=== PATIENT | male | born 2000 | race Caucasian/White ===

== ENCOUNTER 2023-04-13 16:29 | Outpatient (OUT) | payer OTHER, SELFPAY ==
[2023-04-17 03:07] LABS: Neisseria gonorrhoeae, NAA Negative (Negative)
== END 2023-04-13 16:30 | disposition home or self-care (01) ==
PROVIDERS: PCP Internal Medicine; Visit Provider Internal Medicine
DX: Z86.19 Personal history of other infectious and parasitic diseases (principal)
CPT/HCPCS: 87491; 87591

== ENCOUNTER 2023-07-20 17:46 | Emergency (ER) | payer OTHER, SELFPAY ==
[2023-07-20 17:49] VITALS: BP 126/71; PULSE 81; TEMP 37.1; O2SAT 97; BMI 27.1
--- OUTSIDE RECORDS SUMMARY | 2023-07-20 17:54 | XMS_ITS ---
Patient Summarization (C-CDA 2.1 CCD) Created on: July 20, 2023 DELORIS SAHNI : 2000 Sex: Male Author Organization Sample organization Care Team Providers Care Motion Picture Narrator Name Role Phone SHAIKH ESTEVEZ Attending Unavailable SHAIKH ESTEVEZ Consulting Unavailable SHAIKH ESTEVEZ Primary Care Unavailable SHAIKH ESTEVEZ Admitting Unavailable DayoTamar Unavailable Jade Cooper Unavailable Rose Marie, Reta Unavailable Rose Marie, FRAN Valdivia Attending Provider [phone] Reta Trotter Attending Unavailable Reta Trotter Admitting Unavailable SHAIKH ESTEVEZ Attending Unavailable Encounters Encounter Date Encounter Type Care Provider Facility Start: 04-09-2023 End: 04-09-2023 ambulatory SHAIKH HERB Not Available Start: 01-25-2023 End: 01-25-2023 ambulatory Reta Rose Marie Other [facility] Other Start: 01-25-2023 Telephone encounter Retaklever Trotter [facility] [address] Start: 01-21-2023 End: 01-21-2023 Departed Referred TETRYL NITRATOR OPERATORIrene Trotter Work Phone: [facility] [place] Work Phone: Start: 01-21-2023 End: 01-21-2023 ambulatory Reta M Rose Marie Homer zanda Other Start: 01-21-2023 Office outpatient visit 15 minutes Reta Rose Marie [facility] Start: 02-21-2021 End: 02-21-2021 ambulatory Jade Cooper Other [facility] Other Start: 02-21-2021 Office outpatient visit 5 minutes Jade Allison [facility] Start: 01-05-2021 End: 01-06-2021 ambulatory SHAIKH HERB Facility: Start: 11-18-2020 Office outpatient visit 5 minutes Tamarmoustapha Oshea [facility] Medications Current Medications Medication Drug Class(es) Dates Sig (Normalized) Sig (Original) doxycycline hyclate 100 mg oral capsule (1 source) Tetracycline-clas s Drug Start: 01-25-2023 take 1 capsule by mouth every twelve hours Doxycycline Hyclate 100 MG 1 capsule Orally Twice a day for 7 days Jan, Active Payers Date Payer Category Payer Self-pay 2023 Unknown [id number] 2000 Unknown [id number] 2000 Unknown [id number] 1959 Unknown [id number] Unknown [id number] Plan of Treatment Date Care Activity Detail Author Start: 01-21-2023 [facility] Chlamydia trachomati s DNA [Presence] in Unspecified specimen by HOLDEN with probe detection [facility] Neisseria gonorrhoea e DNA [Presence] in Unspecified specimen by HOLDEN with probe detection [facility] Trichomonas vaginali s DNA [Presence] in Unspecified specimen by HOLDEN with probe detection [facility] Problems Active Problems Problem Classification Problem Date Documented Da te Episodic/Chronic Epilepsy; convulsions (4 sources) Unspecified convulsions; Translations: [UNSPECIFIED CONVULSIONS] Onset: 01-05-2021 Episodic Residual codes; unclassified (2 sources) High risk heterosexual behavior; Translations: [High risk heterosexual behavior] Onset: 01-21-2023 Episodic Past or Other Problems Problem Classification Problem Date Documented Da te Episodic/Chronic Immunizations and screening for infectious disease (2 sources) Encounter for screening for other viral diseases; Translations: [Encounter for screening for other viral diseases Z11.59] Onset: 11-18-2020 Resolved: 02-21-2021 Episodic Results Test Name Value Interpretation Reference Range Facility Chlamydia/GC/Trich NAAon Chlamydia Trachomotis, HOLDEN Positive Critically abnormal Negative [facility] Comment on above: Order Comment: SOURC E OF SPECIMEN: URINE Performed By: #### G CCHLAMTRI #### [facility] , Neisseria Gonorrhoeae, HOLDEN Negative Normal Negative [facility] Comment on above: Order Comment: SOURC E OF SPECIMEN: URINE Performed By: #### G CCHLAMTRI #### [facility] , Trichomonas HOLDEN Negative Normal Negative [facility] Comment on above: Order Comment: SOURC E OF SPECIMEN: URINE Result Comment: Perf ormed at: =G - [facility] [address] [id number] Supervisor Counseling And Guidance: Jillian Hernández MD, Phone: [phone] PERFORMED BY: [facility] [address] [id number] PATHOLOGIST JUKE BOX SERVICER GERTRUDE BRAR M.D. Performed By: #### G CCHLAMTRI #### [facility] , CBC AUTO DIFFon 01-05-2021 BASO # 0.1 103/ul Normal 0.0-0.1 [facility] Comment on above: Performed By: #### C BC #### [facility] [address] [address] [address] Anita Costa Basophils/100 WBC (Bld) 1.3 % Normal 0.2-2.0 [facility] Comment on above: Performed By: #### C BC #### [facility] [address] [address] [address] Anita Costa EO # 0.2 103/ul Normal 0.0-0.7 [facility] Comment on above: Performed By: #### C BC #### [facility] [address] [address] [address] Anita Costa Eosinophils/100 WBC (Bld) 2.7 % Normal 0.9-7.0 [facility] Comment on above: Performed By: #### C BC #### [facility] [address] [place] [address] Dr. Anita Costa Erythrocyte distribution width (RBC) [Ratio] 12.2 % Normal 11.0-15.0 [facility] Comment on above: Performed By: #### C BC #### [facility] [address] [place] [address] Dr. Anita Costa Hematocrit (Bld) [Volume fraction] 46.2 % Normal 42.0-54.0 [facility] Comment on above: Performed By: #### C BC #### [facility] [address] [place] [address] Dr. Anita Costa Hemoglobin (Bld) [Mass/Vol] 15.3 g/dL Normal 14.0-18.0 [facility] Comment on above: Performed By: #### C BC #### [facility] [address] [place] [address] Dr. Anita Costa IG # 0.01 10e3/ul Normal 0.00-0.03 [facility] Comment on above: Performed By: #### C BC #### [facility] [address] [place] [address] Dr. Anita Costa IG % 0.2 % Normal 0.0-0.5 [facility] Comment on above: Performed By: #### C BC #### [facility] [address] [place] [address] Dr. Anita Costa LYMPH # 1.9 103/ul Normal 1.2-3.8 [facility] Comment on above: Performed By: #### C BC #### [facility] [address] [place] [address] Dr. Anita Costa Lymphocytes/100 WBC (Bld) 34.6 % Normal 20.5-60.0 [facility] Comment on above: Performed By: #### C BC #### [facility] [address] [place] [address] Dr. Anita Costa MANUAL DIFF REQ NO Normal [facility] Comment on above: Performed By: #### C BC #### [facility] [address] [place] [address] Dr. Anita Costa MCH (RBC) [Entitic mass] 30.5 pg Normal 25.9-34.0 [facility] Comment on above: Performed By: #### C BC #### [facility] [address] [place] [address] Dr. Anita Costa MCHC (RBC) [Mass/Vol] 33.1 g/dL Normal 29.9-35.2 [facility] Comment on above: Performed By: #### C BC #### [facility] [address] [place] [address] Dr. Anita Costa MCV (RBC) [Entitic vol] 92.0 fL Normal 80.0-94.0 [facility] Comment on above: Performed By: #### C BC #### [facility] [address] [place] [address] Dr. Anita Costa MONO # 0.4 103/ul Normal 0.3-0.8 [facility] Comment on above: Performed By: #### C BC #### [facility] [address] [place] [address] Dr. Anita Costa Monocytes/100 WBC (Bld) 7.9 % Normal 1.7-12.0 [facility] Comment on above: Performed By: #### C BC #### [facility] [address] [place] [address] Dr. Anita Costa NEUT # 3.0 103/ul Normal 1.4-6.5 [facility] Comment on above: Performed By: #### C BC #### [facility] [address] [place] [address] Dr. Anita Costa Neutrophils/100 WBC (Bld) 53.3 % Normal 43.0-75.0 [facility] Comment on above: Performed By: #### C BC #### [facility] [address] [place] [address] Dr. Anita Costa Platelet mean volume (Bld) [Entitic vol] 10.0 fL Normal 9.5-13.5 [facility] Comment on above: Performed By: #### C BC #### [facility] [address] [place] [address] Dr. Anita Costa PLT 261 103/ul Normal 150-450 [facility] Comment on above: Performed By: #### C BC #### [facility] [address] [place] [address] Dr. Anita Costa RBC 5.02 106/ul Normal 4.70-6.10 [facility] Comment on above: Performed By: #### C BC #### [facility] [address] [place] [address] Dr. Anita Costa WBC 5.6 103/ul Normal 4.0-11.0 [facility] Comment on above: Performed By: #### C BC #### [facility] [address] [place] [address] Dr. Anita Costa MAGNESIUMon 01-05-2021 Magnesium [Mass/Vol] 2.3 mg/dL Normal 1.6-2.3 [facility] Comment on above: Performed By: #### C MP, MG, TSH #### [facility] [address] [place] [address] Dr. Anita Costa PROF 14(COMP METB)on 021 Albumin [Mass/Vol] 4.0 g/dL Normal 3.5-5.0 [facility] Comment on above: Performed By: #### C MP, MG, TSH #### [facility] [address] [place] [address] Dr. Anita Costa Albumin/Globulin [Mass ratio] 1.2 {ratio} Normal [facility] Comment on above: Performed By: #### C MP, MG, TSH #### [facility] [address] [place] [address] Dr. Anita Costa ALP [Catalytic activity/Vol] 73 U/L Normal 38-126 [facility] Comment on above: Performed By: #### C MP, MG, TSH #### [facility] [address] [place] [address] Dr. Anita Costa ALT [Catalytic activity/Vol] 14 U/L Critically low 21-72 [facility] Comment on above: Performed By: #### C MP, MG, TSH #### [facility] [address] [address] [address] Anita Costa Anion gap [Moles/Vol] 9.2 mmol/L Normal [facility] Comment on above: Performed By: #### C MP, MG, TSH #### [facility] [address] [place] [address] Dr. Anita Costa AST [Catalytic activity/Vol] 13 U/L Critically low 17-59 [facility] Comment on above: Performed By: #### C MP, MG, TSH #### [facility] [address] [place] [address] Dr. nAita Costa Bilirubin [Mass/Vol] 0.6 mg/dL Normal 0.2-1.3 [facility] Comment on above: Performed By: #### C MP, MG, TSH #### [facility] [address] [place] [address] Dr. Anita Costa Calcium [Mass/Vol] 9.5 mg/dL Normal 8.4-10.2 [facility] Comment on above: Performed By: #### C MP, MG, TSH #### [facility] [address] [place] [address] Dr. Anita Costa Chloride [Moles/Vol] 103 mmol/L Normal 98-107 [facility] Comment on above: Performed By: #### C MP, MG, TSH #### [facility] [address] [place] [address] Dr. Anita Costa CO2 [Moles/Vol] 32.0 mmol/L Critically high 22.0-30.0 [facility] Comment on above: Performed By: #### C MP, MG, TSH #### [facility] [address] [place] [address] Dr. Anita Costa Creatinine [Mass/Vol] 0.73 mg/dL Normal 0.66-1.25 [facility] Comment on above: Performed By: #### C MP, MG, TSH #### [facility] [address] [place] [address] Dr. Anita Costa EGFR-AF ERITREAN >60 Normal >=60 [facility] Comment on above: Performed By: #### C MP, MG, TSH #### [facility] [address] [place] [address] Dr. Anita Costa EGFR-NON AF ERITREAN >60 Normal >=60 [facility] Comment on above: Performed By: #### C MP, MG, TSH #### [facility] [address] [place] [address] Dr. Anita Costa Globulin (S) [Mass/Vol] 3.3 g/dL Normal [facility] Comment on above: Performed By: #### C MP, MG, TSH #### [facility] [address] [place] [address] Dr. Anita Costa Glucose [Mass/Vol] 83 mg/dL Normal 74-106 [facility] Comment on above: Performed By: #### C MP, MG, TSH #### [facility] [address] [place] [address] Dr. Anita Costa Potassium [Moles/Vol] 4.2 mmol/L Normal 3.4-5.0 [facility] Comment on above: Performed By: #### C MP, MG, TSH #### [facility] [address] [place] [address] Dr. Anita Costa Protein [Mass/Vol] 7.3 g/dL Normal 6.1-8.2 [facility] Comment on above: Performed By: #### C MP, MG, TSH #### [facility] [address] [place] [address] Dr. Anita Costa Sodium [Moles/Vol] 140 mmol/L Normal 137-145 [facility] Comment on above: Performed By: #### C MP, MG, TSH #### [facility] [address] [place] [address] Dr. Anita Costa Urea nitrogen [Mass/Vol] 16.0 mg/dL Normal 6.4-19.3 [facility] Comment on above: Performed By: #### C MP, MG, TSH #### [facility] [address] [place] [address] Dr. Anita Costa Urea nitrogen/Creatinin e [Mass ratio] 21.9 mg/mg Normal [facility] Comment on above: Performed By: #### C MP, MG, TSH #### [facility] [address] [address] [address] Anita Costa TSHon 01-05-2021 TSH 0.824 uIU/mL Normal 0.430-3.750 [facility] Comment on above: Performed By: #### C MP, MG, TSH #### [facility] [address] [address] [address] Anita Costa TSH RANGE SEE BELOW Normal [facility] Comment on above: Result Comment: <0.3 4 UIU/ml HYPERTHYROID 0.34-5.60 UIU/ml EUTHYROID >5.60 UIU/ml HYPOTHYROID Performed By: #### C MP, MG, TSH #### [facility] [address] [address] [address] Anita Costa Consultation Noteon 11-20-19 Consultation Note [id number] #1.00CD:127 Normal [facility] COVID Quick Testingon 2020 Result Negative [facility] Other Coding Summary.on 02-26-2020 Coding Summary. CODING DATE: 02/26/2020 FINAL [facility] STATUS: Home (Routine DC) PAYOR: [employer] APC DESCRIPTION 5521 Level 1 Imaging without Contrast ADMIT DX: REASON FOR VISIT DX: M54.9 Dorsalgia, unspecified FINAL DX: PRINCIPAL: M54.9 Dorsalgia, unspecified SECONDARY: M41.24 Other idiopathic scoliosis, thoracic region M41.26 Other idiopathic scoliosis, lumbar region Z98.1 Arthrodesis status Z97.8 Presence of other specified devices PYMT PROC APC STAT DESCRIPTION DOCTOR NAME DATE NOTE: The code number assigned matches the documented diagnosis and / or procedure in the patient's chart. However, the narrative phrase printed from the coding software may appear abbreviated, or result in slightly different terminology. Coded By: Annamarie Choudhury CphT Date Saved: 02/26/2020 09:01 am Normal [facility] Consultation Noteon 02-25-19 Consultation Note [id number] #1.00CD:127 Normal [facility] Progress Noteon 02-26-2020 [employer] Worker Authentication Interface Message Text ORTHOPEDICS - Progress Notes Patient Name: Ian Sahni Date of : 2000 Date of Service: 02/26/20 CSN: [id number] Chief Complaint: Chief Complaint Patient presents with Follow Up Scoliosis . Ian Sahni is a 19 y.o. male following up for scoliosis spinal fusion. History of Present Illness: This young man is doing well. He denies any pain at this time whatsoever. Denies any difficulty getting around or doing activities. He is a senior in high school. He plans on going to college this coming year. He denies any change in past mental history review of system social history and family tree. The patient and his mother were both interviewed. Physical Examination: This is a well-developed well-nourished young man. He is moving around freely in no apparent pain or distress at the moment. He has good shoulder balance although has just a slight shift to the right and his waist. He has normal sagittal contour. His sagittal contour is normal. Incision is benign he did not hurt to palpation anywhere up or down the spine including the lower levels of the instrumentation on either side. He remains neurologically intact with symmetrical dorsiflexors plantar flexors everters invertors hip abductor's adductor's quads and hams bilaterally. X-rays: We ordered 2 views of the spine through [facility]. The PA view shows continued maintenance of correction with less than 20 degrees of lumbar curvature. The loose instrumentation is noted. It has not changed in position or alignment. We also ordered to interpreted a lateral view of the spine. It shows continued maintenance of normal sagittal contour with a minimal distal junctional kyphosis which is not changed. There is extensive callus formation. Diagnosis/Impression : Stable patient status post spinal fusion Discussion and Medical Decisions: At this time this young man is doing well. We did discuss lifelong activities including back safe activities rather than back abuse activities. We discussed his genetic risk for past history and are strong. We discussed appropriate spinal health. I will see him back on an as-needed basis should he have difficulties. More than 20 minutes was spent evaluating the patient reviewing x-rays with the family and patient and discussing the long-term prognosis. Treatment Plan: Follow-up as needed. Hai Ordonez MD This note was dictated and transcribed utilizing voice recognition software. Errors in grammar and text may occur. This note or partial portions of this note may have been created using templates or paste features. Any such portions have been reviewed, verified and edited for accuracy and pertinence. Elements for proper CPT coding and/or billing are unique to this visit. Review of systems is negative for other significant musculoskeletal pain, loss of vision, hearing loss, high blood pressure, shortness of breath, skin ulcers, paresthesia, lymphedema, temperature intolerance, or nausea, unless otherwise stated in the history of present illness or past medical history. Past Medical History Past Medical History: Diagnosis Date GERD (gastroesophageal reflux disease) Scoliosis Seasonal allergies Past Surgical History: Procedure Laterality Date ADENOIDECTOMY ORTHOPEDIC SURGERY SPINAL FIXATION SURGERY WITH IMPLANT N/A 01/05/2017 Posterior spinal fusion thoracic and lumbar spine with instrumentation, possible osteotomies performed by Hai Ordonez MD at [facility] Family Medical History: History reviewed. No pertinent family history. Social History: Social History Tobacco Use Smoking status: Never Smoker Smokeless tobacco: Never Used Substance Use Topics Alcohol use: Not on file Drug use: Not on file Normal [facility] XR Spine Scoliosis AP and [place] teralon 02-22-2020 XR Spine Scoliosis AP and Lateral Exam Date/Time: 02/18/2020 16:10 EST Reason for Exam: M54.9 Dorsalgia, unspecified Report IMPRESSION: POSTSURGICAL CHANGES. SCOLIOTIC CURVATURES. CLINICAL HISTORY: M54.9 Dorsalgia, unspecified. COMPARISON: 02/11/2019. COMMENT: PA and lateral upright images (4 views) were obtained. There are bilateral posterior stabilization rods with interpedicular screws, extending from the upper thoracic spine to the L1 level. From T3 through T6, there is dextroscoliosis measures approximately 10 degrees. The thoracic spine segment from T6 through T10 is straight. From T11 through L2, there is dextroscoliosis that measures approximately 19 degrees. FINAL REPORT Dictated: 02/22/2020 11:30 am Hai Fowler M.D. Signed (Electronic Signature): 02/22/2020 11:30 am Signed by: Hai Fowler M.D. Transcribed by: ASHWIN Technologist: ZORAIDA [facility] Consent for Treatmenton 02-05 Consent for Treatment [id number] #1.00CD:127 [facility] Physician Orderon 02-18-2020 Physician Order [id number] #1.00CD:127 [facility] Ambulatory Clinical Summaryo n 12-02-2019 Ambulatory Clinical Summary {[id number]}CD:[id number] [facility] Ambulatory Clinical Summary {[id number]}CD:[id number] [facility] Patient Educationon 12-02-19 Patient Education Allergy and Immunology Asthma, Pediatric Asthma is a disease of the respiratory system. It causes swelling and narrowing of the airways inside the lungs. When this happens there can be coughing, a whistling sound when you breathe (wheezing ), chest tightness, and difficulty breathing. The narrowing comes from swelling and muscle spasms of the air tubes. Asthma is a common illness of childhood. Knowing more about your child's illness can help you handle it better. It cannot be cured, but medicines can help control it. CAUSES Asthma is likely caused by inherited factors and certain environmental exposures. Asthma is often triggered by allergies, viral lung infections, or irritants in the air. Allergic reactions can cause your child to wheeze immediately when exposed to allergens or many hours later. Asthma triggers are different for each child. It is important to pay attention and know what tiggers your child's asthma. Common triggers for asthma include: ? Animal dander from the skin, hair, or feathers of animals. ? Dust mites contained in house dust. ? Cockroaches. ? Pollen from trees or grass. ? Mold. ? Cigarette or tobacco smoke. ? Air pollutants such as dust, household recovery collector, hair sprays, aerosol sprays, paint fumes, strong chemicals, or strong odors. ? Cold air or weather changes. Cold air may cause inflammation. Winds increase molds and pollens in the air. ? Strong emotions such as crying or laughing hard. ? Stress. ? Certain medicines such as aspirin or beta-blockers. ? Sulfites in such foods and drinks as dried fruits and wine. ? Infections or inflammatory conditions such as the flu, a cold, or an inflammation of the nasal membranes (rhinitis ). ? Gastroesophageal reflux disease (GERD). GERD is a condition where stomach acid backs up into your throat (esophagus ). ? Exercise or strenous activity. SYMPTOMS Wheezing and excessive nighttime or yard conductor coughing are common signs of asthma. Frequent or severe coughing with a simple cold is often a sign of asthma. Chest tightness and shortness of breath are other symptoms. Exercise limitation may also be a symptom of asthma. These can lead to irritability in a younger child. Asthma often starts at an early age. The early symptoms of asthma may go unnoticed for long periods of time. DIAGNOSIS The diagnosis of asthma is made by review of your child's medical history, a physical exam, and possibly from other tests. Lung function studies may help with the diagnosis. TREATMENT Asthma cannot be cured. However, for the majority of children, asthma can be controlled with treatment. Besides avoidance of triggers of your child's asthma, medicines are often required. There are 2 classes of medicine used for asthma treatment: controller medicines (reduce inflammation and symptoms) and reliever or rescue medicines (relieves asthma symptoms during acute attacks). Many children require daily medicines to control their asthma. The most effective long-term controller medicines for asthma are inhaled corticosteroids (blocks inflammation). Other long-term control medicines include: ? Leukotriene receptor antagonists (blocks a pathway of inflammation). ? Long-acting beta2-agonists (relaxes the muscles of the airways for at least 12 hours) with an inhaled corticosteroid. ? Cromolyn sodium or nedocromil (alters certain inflammatory cells' ability to release chemicals that cause inflammation). ? Immunomodulators (alters the immune system to prevent asthma symptoms) . ? Theophylline (relaxes muscles in the airways). All children also require a short-acting beta2-agonist (medicine that quickly relaxes the muscles around the airways) to relieve asthma symptoms during an acute attack. All people providing care to your child should understand what to do during an acute attack. Inhaled medicines are effective when used properly. Read the instructions on how to use your child's medicines correctly and speak to your child's caregiver if you have questions. Follow up with your child's caregiver on a regular basis to make sure your child's asthma is well-controlled. If your child's asthma is not well-controlled, if your child has been hospitalized for asthma, or if multiple medicines or medium to high doses of inhaled corticosteroids are needed to control your child's asthma, request a referral to an asthma specialist. HOME CARE INSTRUCTIONS ? Give medicines as directed by your child's caregiver. ? Avoid things that make your child's asthma worse. Depending on your child's asthma triggers, some control measures you can take include: ? Changing your heating and air conditioning filter at least once a month. ? Placing a filter or cheesecloth over your heating and air conditioning vents. ? Limiting your use of fireplaces and wood stoves. ? Smoking outside and away from the child, if you must smoke. Change your clothes after smoking. Do not smoke in a car when your chil (more content not included)... Normal [facility] Pediatrics Office/Clinic Not nazia 12-02-2019 Pediatrics Office/Clinic Note Chief Complaint Patient here today with mom for sore throat and dry cough. Started roughly 3 days ago. History of Present Illness Duration: 2 days ago of ocngestion, cough and sore throat Cough Description: progressive Productive: scant Respiratory Symptoms Chest congestion: no Chest tightness: no Sinus pressure: no Shortness of breath: no Wheezing: no Symptom complex Allergy symptoms: no Body aches: no Chest congestion: no Ear complaints: no Eye watering: no Fever: no Headache: yes Irritable/fussy: no Nasal congestion: yes Nasal discharge: yes CLEAR Sinus pain/pressure: no Vomiting: no Wheezing: no sore throat: yes Feeding as usual: yes Adequate voiding and stooling: yes Exposure: no ill contacts Remedies tried: Nothing Pertinent History: Hx of allergies, Hx of asthma but has not used inhaler for years Hx of addenoidectomy but no tonsillectomy Improved: no Review of Systems ROS - Provider CONSTITUTIONAL: Negative for growth problems, fatigue, unexplained fevers, and weight loss. EYES: Negative for apparent vision problems, eye drainage, and lazy eye. E/N/T: Negative for apparent hearing deficits, chronic nasal congestion, dental problems, and speech problems. nasal congestion and clear rhinorrhea CARDIOVASCULAR: Negative for chest pain, cyanotic spells, edema, and poor exercise tolerance. RESPIRATORY: Negative for chronic cough, dyspnea, exposure to tuberculosis, and wheezing. Recent cough, Hx of asthma GASTROINTESTINAL: Negative for abdominal pain, constipation, diarrhea, feeding/nutritional problems, and vomiting. GENITOURINARY: Negative for dysuria, hematuria, difficulty voiding, or rashes/lesions of the external genitalia. INTEGUMENTARY: Negative for atopic dermatitis, atypical moles, pruritis, rashes, and skin lesions. HEMATOLOGIC/LYMPHATI C: Negative for bleeding, excessive bruising, and lymphadenopathy. Physical Exam Vitals & Measurements T: 36.2 ?C (Temporal Artery) HR: 88(Peripheral) RR: 18 BP: 110/78 HT: 182 cm HT: 182.0 cm WT: 99.9 kg WT: 99.9 kg BMI: 30.16 GENERAL: The patient is well developed, well nourished, in no apparent distress. EYES: lids and conjunctiva are normal; pupils and irises are normal; funduscopic exam reveals red reflex present bilaterally. E/N/T: normal external auditory canals and tympanic membranes; Nose: swollen congested nasal mucosa, septum, turbinates, and sinuses; Lips, Teeth and Gums: normal. Oropharynx: normal mucosa, palate, and posterior pharynx; RESPIRATORY: normal respiratory rate and pattern with no distress; normal breath sounds with no rales, rhonchi, wheezes or rubs; CARDIOVASCULAR: normal rate and rhythm without murmurs; normal S1 and S2 heart sounds with no S3, S4, rubs, or clicks. GASTROINTESTINAL: normal bowel sounds; no masses or tenderness; no organomegaly no abdominal or inguinal hernia; LYMPHATIC: no enlargement of cervical nodes; no axillary adenopathy; no inguinal adenopathy; SKIN: No ulcerations, lesions or rashes are noted. Assessment/Plan 1. Acute allergic rhinitis due to pollen (J30.1: Allergic rhinitis due to pollen) - avoid exposure to allergens including outdoors activity - avoid smoking - flonase nasal spray bid - singular at bedtime 2. Asthma (J45.909: Unspecified asthma, uncomplicated) For Asthma exacerbation - rest - avoid heavy exertion - limit cold air exposure - avoid cigarette smoke - identify and avoid triggers - peak flow monitoring - importance of compliance - develop asthma action plan - demonstration of inhaler or nebulizer albuterol inhaler bid mucinex ER bid Orders: albuterol, 2 puff(s), Inhalation, q4hr for wheezing or SOB, 1 EA, Refill(s) 3, [id number], 182, cm, 12/02/19 10:34:00 EDT, Height/Length Dosing, 99.9, kg, 12/02/19 10:34:00 EDT, Weight Dosing fluticasone nasal, 1 spray(s), Nasal, BID, 16 gram, Refill(s) 0, each nostril, [id number], 182, cm, 12/02/19 10:34:00 EDT, Height/Length Dosing, 99.9, kg, 12/02/19 10:34:00 EDT, Weight Dosing guaifenesin, 600 mg, Oral, BID, X 30 day(s), # 60 tab(s), Refills(s) 0, Pharmacy: [facility]/pharm[facility] #[id number], 182, cm, 12/02/19 10:34:00 EDT, Height/Length Dosing, 99.9, kg, 12/02/19 10:34:00 EDT, Weight Dosing montelukast, 10 mg = 1 tab(s), Oral, qPM, # 30 tab(s), Refills(s) 0, Pharmacy: [facility]/pharm[facility] #[id number], 182, cm, 12/02/19 10:34:00 EDT, Height/Length Dosing, 99.9, kg, 12/02/19 10:34:00 EDT, Weight Dosing Follow-up With When Contact Information CATHY ROLAND, Aml S In 6 days Additional Instructions: Allergic rhinitis and asthma Patient Education Asthma, Pediatric Problem List/Past Medical History Ongoing Abnormal weight loss Acute allergic rhinitis due to pollen Acute insomnia Asthma Depressed state GERD (gastroesophageal reflux disease) Injury of ankle, right Scoliosis Historical No qualifying data Procedure/Surgical History Spinal fusion (01/05/2017), (more content not included)... Normal [facility] Provider Letteron 12-02-2019 Provider Letter December 02, 2019 IAN SAHNI N [address] [id number] IAN SAHNI N 2000 To Whom It May Concern, Please excuse above student from school. Date of Absence: 12/02/2019 and 12/03/2019 From: _ To: _ May Return to School On: _ Appointment Time In: _ Time Left Office: _ Restrictions: _ Comments: _ Sincerely, [facility] [address] [place], [place] [address] Normal [facility] Social History Date Type Detail Facility Start: 2001 Sex Assigned At Male [facility] Sex Assigned At [facility] Other Vital Signs Date Time Vital Sign Value Performing Clinician Facility 01-21-2023 14:15-0500 Body height 178.44 cm Reta Rose Marie Other [facility] Other 01-21-2023 14:15-0500 Body mass index (BMI) [Ratio] 28.09 kg/m2 Reta Rose Marie Other [facility] Other 01-21-2023 14:15-0500 Body temperature 99.2 [degF] Reta Rose Marie Other [facility] Other 01-21-2023 14:15-0500 Body weight 89.45 kg Reta Rose Marie Other [facility] Other 01-21-2023 14:15-0500 Respiratory rate 18 /min Reta Rose Marie Other [facility] Other 01-21-2023 14:15-0500 SaO2% (BldA) [Mass fraction] 98 % Reta Rose Marie Other [facility] Other Evaluation note 01-21-2023 Note Date & Type Note Facility 01-21-2023 Evaluation note Encounter Date Diagnosis Assessment Notes Jan, High risk sexual behavior, unspecified type (ICD-10 - Z72.51) You were seen here today because you wanted an STD check. You provided a urine specimen to check for STDs. You decline having any symptoms or lesions and state you want testing due to a new partner. You deny fever, chills, nausea, vomiting, penile pain or discharge, You would like called with results and deny wanting any treatment at this time. You will be notified with results. You have been educated on safe sex practices. Follow up with your primary doctor if develop symptoms. [facility] Other Evaluation note 02-21-2021 Note Date & Type Note Facility 02-21-2021 Evaluation note Encounter Date Diagnosis Assessment Notes Feb, Encounter for screening for other viral diseases (ICD-10 - Z11.59) Feb, Other Additional time spent conducting pre-visit phone call, screening for symptoms, instructions on social distancing, application and removal of PPE, and cleaning of examination room, equipment and supplies was preformed. Patient education given for testing methodology and results. Patient care instructions given in writting by [facility] document. [facility] Other Evaluation note 11-18-2020 Note Date & Type Note Facility 11-18-2020 Evaluation note Encounter Date Diagnosis Assessment Notes Nov, Encounter for screening for other viral diseases (ICD-10 - Z11.59) Nov, Other Additional time spent conducting pre-visit phone call, screening for symptoms, instructions on social distancing, application and removal of PPE, and cleaning of examination room, equipment and supplies was preformed. Patient education given for testing methodology and results. Patient care instructions given in writting by [facility] document. [facility] Other Evaluation note Note Date & Type Note Facility Evaluation note No assessment information [facility] Work Phone: Evaluation note Note Date & Type Note Facility Evaluation note No Information [employer] Other History general Narrative - Reported Note Date & Type Note Facility History general Narrative - Reported Type Medical History scoliosis Surgical History spinal fusion with rods Hospitalization History see above [facility] Other Summary Purpose Family History No Family History Records FoundNo Family History Records FoundNo Family History Records FoundNo Family History Records FoundNo Family History Records Found Advance Directives No Advanced Directives Records FoundNo Advanced Directives Records FoundNo Advanced Directives Records FoundNo Advanced Directives Records FoundNo Advanced Directives Records Found Additional Source Comments (unrecognized sect ion and content) No Status Records FoundNo Status Records FoundNo Status Records FoundNo Status Records FoundNo Status Records Found INFORMATION SOURCE (unrecogn ized section and content) DATE CREATED AUTHOR 02/26/2020 [facility] DATE CREATED AUTHOR AUTHOR'S ORGANIZ ATION 11/20/2020 [facility] DATE CREATED AUTHOR AUTHOR'S ORGANIZ ATION 02/03/2021 [facility] DATE CREATED AUTHOR AUTHOR'S ORGANIZ ATION 01/25/2023 [facility] DATE CREATED AUTHOR AUTHOR'S ORGANIZ ATION 04/10/2023 [facility] EPIC REASON FOR VISIT (unrecogniz ed section and content) #21 WHITE [employer]QUIN[employer], COVID EXP OSURE, COVID Nurse Visit- Self Pay#21 WHITE [place] EQUINOX, EXPOSEDSTI checkNo Information Care Teams (unrecognized sec tion and content) Team Status: Inactive Member Role Status Dates Reta Trotter APRN Attending Provider Active Goals (unrecognized section and content) Goals may be documented in a n alternate section FOR RECORDS PERTAINING TO PATIENTS WHO ARE OR HAVE BEEN ENROLLED IN A CHEMICAL DEPENDENCY/SUBSTANCEABUSE PROGRAM, SOME INFORMATION MAY BE OMITTED. This clinical summary was aggregated from multiple sources. Caution should be exercised in using it in the provision of clinical care. This summary normalizes information from multiple sources, and as a consequence, information in this document may materially change the coding, format and clinical context of patient data. In addition, data may be omitted in some cases. CLINICAL DECISIONS SHOULD BE BASED ON THE PRIMARY CLINICAL RECORDS. [facility]. provides no warranty or guarantee of the accuracy or completeness of information in this document.
--- NOTE | 2023-07-20 17:56 | ED.GENADUL1 ---
HPI HPI - General Adult General Chief complaint: Skin/Abscess/Foreign Body Stated complaint: RASH ON ARM Time Seen by Provider: 07/20/23 17:47 Source: patient History of Present Illness HPI narrative: Patient is a 22-year-old male who presents to the emergency department for the evaluation of a rash for the last several days to the right forearm. He denies any significant itching. He has had serous drainage from the rash. No medications prior to arrival. He has not had the rash anywhere else. No red streaking or warmth noted. Related Data Previous Rx's ?Medication ?Instructions ?Recorded hydroxyzine HCl 25 mg tablet 25 mg PO Q6H PRN itching/rash #20 07/20/23 tabs methylprednisolone 4 mg tablets in See Rx Instructions .Route 07/20/23 a dose pack (Medrol (Steve)) .COMPLEX #21 ea Allergies Allergy/AdvReac Type Severity Reaction Status Date / Time No Known Drug Allergies Allergy Verified 07/20/23 17:49 Opioid HPI Opioid Management Most Recent Opioid Data: No Data to Display Review of Systems ROS Constitutional Denies: fever or chills Ears, nose, mouth, and throat Denies: throat pain or nasal congestion Respiratory Denies: shortness of breath Gastrointestinal Denies: nausea or vomiting Integumentary/Breast Reports: rash and redness Hematologic/Lymphatic Denies: easy bruising or easy bleeding Allergic/Immunologic Denies: hives Exam Narrative Exam Narrative: Gen.: Awake, alert, in no distress Head: Normocephalic, atraumatic ENT: Moist mucous membranes Respiratory: No respiratory distress Extremities: Moves extremities equally, Erythematous vesicular rash over the dorsum of the right forearm. No circumferential involvement, no extension of the rash to the mucous membranes. No rash on the palms of the hands. No red streaking or warmth. Psych: Normal mood and affect Neuro: No focal neuro deficit Skin: Warm, dry, intact Constitutional Vital Signs, click to edit/add: Last Vital Signs Temp 98.7 F 07/20/23 17:49 Pulse 81 07/20/23 17:49 Resp 18 07/20/23 17:49 BP 126/71 07/20/23 17:49 Pulse Ox 97 07/20/23 17:49 Course Vital Signs Vital signs: Vital Signs Temperature 98.7 F 07/20/23 17:49 Pulse Rate 81 07/20/23 17:49 Respiratory Rate 18 07/20/23 17:49 Blood Pressure 126/71 07/20/23 17:49 Pulse Oximetry 97 07/20/23 17:49 Temperature 98.7 F 07/20/23 17:49 Pulse Rate 81 07/20/23 17:49 Respiratory Rate 18 07/20/23 17:49 Blood Pressure 126/71 07/20/23 17:49 Pulse Oximetry 97 07/20/23 17:49 Medical Decision Making MDM Narrative Medical decision making narrative: Exam is consistent with a contact dermatitis, patient placed on a Medrol Dosepak and hydroxyzine. Follow-up PCP and return to the ER if symptoms change or worsen. Medical Records Medical records reviewed: Yes I reviewed the patient's medical records Discharge Plan Discharge Stand Alone Forms: Portal Instructions Chief Complaint: Skin/Abscess/Foreign Body Clinical Impression: Contact dermatitis Patient Disposition: Home, Self-Care Time of Disposition Decision: 17:54 Condition: Good Prescriptions / Home Meds: New hydroxyzine HCl 25 mg tablet 25 mg PO Q6H PRN (Reason: itching/rash) Qty: 20 0RF methylprednisolone [Medrol (Steve)] 4 mg tablets,dose pack See Rx Instructions .ROUTE .COMPLEX Qty: 21 0RF Rx Instructions: Taper as directed Print Language: Tamazight Instructions: Contact Dermatitis (ED) Referrals: Shaikh Jensen MD [Primary Care Provider] - 1 week
== END 2023-07-20 18:04 | disposition home or self-care (01) ==
PROVIDERS: Emergency Provider Emergency Medicine; PCP Internal Medicine
DX: L25.9 Unspecified contact dermatitis, unspecified cause (principal)
CPT/HCPCS: 99283